=== PATIENT | male | born 1995 ===

== ENCOUNTER 2017-06-09 16:39 | Emergency (ER) | payer MEDICAID ==
--- NOTE | 2017-06-09 17:22 | EDM.PDOC ---
ED HPI GENERAL MEDICAL PROBLEM - General Chief Complaint: Headache Stated Complaint: SEVERE HEADACHES/NUMBNES MOUTH Time Seen by Provider: 06/09/17 16:59 - History of Present Illness INITIAL COMMENTS - FREE TEXT/NARRATIVE: HISTORY AND PHYSICAL: History of present illness: Patient is 22-year-old male presents with concern of left upper molar pain he states this radiates to his cheek and left face. Has been over last several days he denies fever chills nausea vomiting trauma or other concern Review of systems: As per history of present illness and below otherwise all systems reviewed and negative. Past medical history: As per history of present illness and as reviewed below otherwise noncontributory. Surgical history: As per history of present illness and as reviewed below otherwise noncontributory. Social history: No reported history of drug or alcohol abuse. Family history: As per history of present illness and as reviewed below otherwise noncontributory. Physical exam: HEENT: Atraumatic, normocephalic, pupils reactive, negative for conjunctival pallor or scleral icterus, mucous membranes moist, throat clear, neck supple, nontender, trachea midline. Multiple dental caries noted Lungs: Clear to auscultation, breath sounds equal bilaterally, chest nontender. Heart: S1S2, regular, negative for clicks, rubs, or JVD. Abdomen: Soft, nondistended, nontender. Negative for masses or hepatosplenomegaly. Negative for costovertebral tenderness. Pelvis: Stable nontender. Genitourinary: Deferred. Rectal: Deferred. Extremities: Atraumatic, negative for cords or calf pain. Neurovascular unremarkable. Neuro: Awake, alert, oriented. Cranial nerves II through XII unremarkable. Cerebellum unremarkable. Motor and sensory unremarkable throughout. Exam nonfocal. Diagnostics: None Therapeutics: None Impression: #1 left face pain probable dentalgia rule out dental abscess Definitive disposition and diagnosis as appropriate pending reevaluation and review of above. head Pain Score (Numeric/FACES): 8 - Related Data Allergies Allergy/AdvReac Type Severity Reaction Status Date / Time No Known Allergies Allergy Verified 06/09/17 17:09 Home Meds: Home Meds . [No Known Home Meds] 06/09/17 [History] Past Medical History - Past Health History Medical/Surgical History: Denies Medical/Surgical History Neurological History: Reports: Seizure Social & Family History - Family History Family Medical History: Noncontributory - Tobacco Use Smoking Status *Q: Current Every Day Smoker Years of Tobacco use: 7 Packs/Tins Daily: 1 - Recreational Drug Use Recreational Drug Use: Yes Drug Use in Last 12 Months: Yes Recreational Drug Type: Reports: Marijuana/Hashish ED ROS GENERAL - Review of Systems Review Of Systems: ROS reveals no pertinent complaints other than HPI. ED EXAM, GENERAL - Physical Exam Exam: See Below (See dictation) Course - Vital Signs Last Recorded V/S: Last Vital Signs Temp 36.3 C 06/09/17 16:39 Pulse 70 06/09/17 16:39 Resp 18 06/09/17 16:39 BP 152/77 H 06/09/17 16:39 Pulse Ox 97 06/09/17 16:39 Departure - Departure Time of Disposition: 17:21 Disposition: Home, Self-Care 01 Condition: Good Clinical Impression: Face pain, Dentalgia - Discharge Information Referrals: PCP,None [Primary Care Provider] - Additional Instructions: The following information is given to patients seen in the emergency department who are being discharged to home. This information is to outline your options for follow-up care. We provide all patients seen in our emergency department with a follow-up referral. The need for follow-up, as well as the timing and circumstances, are variable depending upon the specifics of your emergency department visit. If you don't have a primary care physician on staff, we will provide you with a referral. We always advise you to contact your personal physician following an emergency department visit to inform them of the circumstance of the visit and for follow-up with them and/or the need for any referrals to a consulting specialist. The emergency department will also refer you to a specialist when appropriate. This referral assures that you have the opportunity for followup care with a specialist. All of these measure are taken in an effort to provide you with optimal care, which includes your followup. Under all circumstances we always encourage you to contact your private physician who remains a resource for coordinating your care. When calling for followup care, please make the office aware that this follow-up is from your recent emergency room visit. If for any reason you are refused follow-up, please contact the [facility] emergency department at and asked to speak to the emergency department charge nurse. [facility] Primary Care [address] [place] [id number] [address]in[address] Hopper Anaprox as prescribed follow-up private medical doctor and/or clinic above follow-up dentist return as needed as discussed
== END 2017-06-09 17:49 | disposition home or self-care (01) ==
LOC: MW.ED 16:39
DX: K02.9 Dental caries, unspecified (principal); F17.210 Nicotine dependence, cigarettes, uncomplicated
CPT/HCPCS: 99282; 99283

== ENCOUNTER 2018-11-01 11:31 | Emergency (ER) | payer SELFPAY ==
[2018-11-01] MEDS ORDERED: Sodium Chloride 0.9% 1,000 ML IV ONE (11:42)
[2018-11-01] MEDS ORDERED: Ondansetron 4 MG/2 ML SDV IVPUSH ONE (11:42)
--- NOTE | 2018-11-01 11:42 | EDM.PDOC ---
ED HPI GENERAL MEDICAL PROBLEM - General Chief Complaint: Abdominal Pain Stated Complaint: STOMACH PAIN AND VOMITING Time Seen by Provider: 11/01/18 11:41 Source of Information: Reports: Patient History Limitations: Reports: No Limitations - History of Present Illness INITIAL COMMENTS - FREE TEXT/NARRATIVE: HISTORY AND PHYSICAL: History of present illness: Patient is a 23-year-old male presents to the ED today with concerns of right upper and left upper abdominal pain. Patient states that this morning when he woke up and that he instantly felt nauseous with a 10 out of 10 abdominal pain. He states the pain comes and goes in waves. He states he has had one episode of vomiting. He states he's also had one episode of watery diarrhea today. He states he has been able to pass gas. He states that all morning he has felt nauseous with the pain. Patient states the pain does radiate to the back He denies any history of any abdominal surgeries.He states he does use marijuana and tobacco but denies any alcohol use. She denies fever, chills, chest pain, shortness of breath, burning with urination, testicular pain, blood in urine or stool, or all other GI, , cardiovascular, or respiratory concerns. Patient denies any health history. Review of systems: As per history of present illness and below otherwise all systems reviewed and negative. Past medical history: As per history of present illness and as reviewed below otherwise noncontributory. Surgical history: As per history of present illness and as reviewed below otherwise noncontributory. Social history: See social history for further information Family history: As per history of present illness and as reviewed below otherwise noncontributory. Physical exam: General: Patient is alert, oriented, and in no acute distress. He is lying comfortably on exam table. HEENT: Atraumatic, normocephalic, pupils equal and reactive bilaterally, negative for conjunctival pallor or scleral icterus, mucous membranes moist, TMs normal bilaterally, throat clear, neck supple, nontender, trachea midline. No drooling or trismus noted. No meningeal signs. No hot potato voice noted. Lungs: Clear to auscultation, breath sounds equal bilaterally, chest nontender. Heart: S1S2, regular rate and rhythm without overt murmur Abdomen: Positive Rehman sign. Generalized mild-moderate tenderness to the right and left upper quadrant. Soft, nondistended. Negative for masses or hepatosplenomegaly. Negative for costovertebral tenderness. Pelvis: Stable nontender. Genitourinary: Deferred. Rectal: Deferred. Skin: Intact, warm, dry. No lesions or rashes noted. Extremities: Atraumatic, negative for cords or calf pain. Neurovascular unremarkable. Neuro: Awake, alert, oriented. Cranial nerves II through XII unremarkable. Cerebellum unremarkable. Motor and sensory unremarkable throughout. Exam nonfocal. Notes: Within the abdomen or pelvis. Trace nonspecific Melissa mesenteric appearance. Patient's lab work is unremarkable with the exception that he does have an H. pylori infection. He has been unable to give us a stool sample at this time. He is requesting to be discharged to home. We will send home supplies to obtain a stool sample along with the outpatient lab paperwork to have this completed. Medications were reviewed and discussed. The appropriate follow-up with the primary care or general surgeon was reviewed and discussed. Supportive care measures were reviewed and discussed. Voices understanding and is agreeable to plan of care. Denies any further questions or concerns at this time. Diagnostics: CBC, CMP, UA, stool studies, abdominal pelvic CT, lipase, H. pylori Therapeutics: IV fluid, Zofran Prescription: Lansoprazole, clarithromycin, amoxicillin Impression: H. pylori infection Plan: 1. Please take the eradication therapy as prescribed. 2. Cuming diet over the next 24-48 hours and then advance as tolerated. 3. Follow-up with primary care or general surgeon as we discussed. 4. Return to the ED as needed and as discussed. Definitive disposition and diagnosis as appropriate pending reevaluation and review of above. Lower abdomen Pain Score (Numeric/FACES): 4 - Related Data Allergies Allergy/AdvReac Type Severity Reaction Status Date / Time No Known Allergies Allergy Verified 11/01/18 11:43 Home Meds: Home Meds . [No Known Home Meds] 06/09/17 [History] Past Medical History - Past Health History Medical/Surgical History: Denies Medical/Surgical History Neurological History: Reports: Seizure Social & Family History - Family History Family Medical History: Noncontributory ED ROS GENERAL - Review of Systems Review Of Systems: ROS reveals no pertinent complaints other than HPI. ED EXAM, GI/ABD - Physical Exam Exam: See Below (See dictation) Course - Vital Signs Last Recorded V/S: Last Vital Signs Temp 98.4 F 11/01/18 11:43 Pulse 68 11/01/18 13:08 Resp 18 11/01/18 13:08 BP 165/85 H 11/01/18 13:08 Pulse Ox 96 11/01/18 13:08 - Orders/Labs/Meds Orders: Active Orders 24 hr Category Date Time Status CDIFF TOX A+B [OP] Stat Lab 11/01/18 12:06 Ordered CULTURE STOOL + CAMPY+SHIGATOX [RM] Stat Lab 11/01/18 12:06 Ordered OVA & PARASITES BY IMMUNOASSAY [MREF] Stat Lab 11/01/18 12:06 Ordered Labs: Laboratory Tests 11/01/18 11/01/18 11/01/18 Range/Units 11:53 11:53 11:53 WBC 10.12 (4.0-11.0) K/uL RBC 5.53 (4.50-5.90) M/uL Hgb 15.9 (13.0-17.0) g/dL Hct 45.8 (38.0-50.0) % MCV 82.8 (80.0-98.0) fL MCH 28.8 (27.0-32.0) pg MCHC 34.7 (31.0-37.0) g/dL RDW Std Deviation 42.0 (28.0-62.0) fl RDW Coeff of Jhonatan 14 (11.0-15.0) % Plt Count 152 (150-400) K/uL MPV 13.60 H (7.40-12.00) fL Neut % (Auto) 81.7 H (48.0-80.0) % Lymph % (Auto) 5.2 L (16.0-40.0) % [place] % (Auto) 9.9 (0.0-15.0) % Eos % (Auto) 3.0 (0.0-7.0) % Baso % (Auto) 0.2 (0.0-1.5) % Neut # (Auto) 8.3 H (1.4-5.7) K/uL Lymph # (Auto) 0.5 L (0.6-2.4) K/uL [place] # (Auto) 1.0 H (0.0-0.8) K/uL Eos # (Auto) 0.3 (0.0-0.7) K/uL Baso # (Auto) 0.0 (0.0-0.1) K/uL Nucleated RBC % 0.0 /100WBC Nucleated RBCs # 0 K/uL Sodium 140 (136-148) mmol/L Potassium 4.0 (3.5-5.1) mmol/L Chloride 105 (98-107) mmol/L Carbon Dioxide 21.5 (21.0-32.0) mmol/L BUN 14 (7.0-18.0) mg/dL Creatinine 1.1 (0.8-1.3) mg/dL Est Cr Clr Drug Dosing 111.24 mL/min Estimated GFR (MDRD) > 60.0 ml/min Glucose 109 H (74-106) mg/dL Calcium 8.8 (8.5-10.1) mg/dL Total Bilirubin 0.4 (0.2-1.0) mg/dL AST 31 (15-37) IU/L ALT 62 (14-63) IU/L Alkaline Phosphatase 92 (46-116) U/L Total Protein 7.9 (6.4-8.2) g/dL Albumin 3.9 (3.4-5.0) g/dL Globulin 4.0 (2.6-4.0) g/dL Albumin/Globulin Ratio 1.0 (0.9-1.6) Lipase 99 (73-393) U/L Urine Color Urine Appearance Urine pH (5.0-8.0) Ur Specific [place] (1.001-1.035) Urine Protein (NEGATIVE) mg/dL Urine Glucose (UA) (NEGATIVE) mg/dL Urine Ketones (NEGATIVE) mg/dL Urine Occult Blood (NEGATIVE) Urine Nitrite (NEGATIVE) Urine Bilirubin (NEGATIVE) Urine Urobilinogen (<2.0) EU/dL Ur Leukocyte Esterase (NEGATIVE) H. pylori IgG Antibody (NEG) 11/01/18 11/01/18 Range/Units 12:17 12:49 WBC (4.0-11.0) K/uL RBC (4.50-5.90) M/uL Hgb (13.0-17.0) g/dL Hct (38.0-50.0) % MCV (80.0-98.0) fL MCH (27.0-32.0) pg MCHC (31.0-37.0) g/dL RDW Std Deviation (28.0-62.0) fl RDW Coeff of Jhonatan (11.0-15.0) % Plt Count (150-400) K/uL MPV (7.40-12.00) fL Neut % (Auto) (48.0-80.0) % Lymph % (Auto) (16.0-40.0) % [place] % (Auto) (0.0-15.0) % Eos % (Auto) (0.0-7.0) % Baso % (Auto) (0.0-1.5) % Neut # (Auto) (1.4-5.7) K/uL Lymph # (Auto) (0.6-2.4) K/uL [place] # (Auto) (0.0-0.8) K/uL Eos # (Auto) (0.0-0.7) K/uL Baso # (Auto) (0.0-0.1) K/uL Nucleated RBC % /100WBC Nucleated RBCs # K/uL Sodium (136-148) mmol/L Potassium (3.5-5.1) mmol/L Chloride (98-107) mmol/L Carbon Dioxide (21.0-32.0) mmol/L BUN (7.0-18.0) mg/dL Creatinine (0.8-1.3) mg/dL Est Cr Clr Drug Dosing mL/min Estimated GFR (MDRD) ml/min Glucose (74-106) mg/dL Calcium (8.5-10.1) mg/dL Total Bilirubin (0.2-1.0) mg/dL AST (15-37) IU/L ALT (14-63) IU/L Alkaline Phosphatase (46-116) U/L Total Protein (6.4-8.2) g/dL Albumin (3.4-5.0) g/dL Globulin (2.6-4.0) g/dL Albumin/Globulin Ratio (0.9-1.6) Lipase (73-393) U/L Urine Color YELLOW Urine Appearance CLEAR Urine pH 6.0 (5.0-8.0) Ur Specific [place] 1.010 (1.001-1.035) Urine Protein NEGATIVE (NEGATIVE) mg/dL Urine Glucose (UA) NEGATIVE (NEGATIVE) mg/dL Urine Ketones NEGATIVE (NEGATIVE) mg/dL Urine Occult Blood NEGATIVE (NEGATIVE) Urine Nitrite NEGATIVE (NEGATIVE) Urine Bilirubin NEGATIVE (NEGATIVE) Urine Urobilinogen 0.2 (<2.0) EU/dL Ur Leukocyte Esterase NEGATIVE (NEGATIVE) H. pylori IgG Antibody POSITIVE H (NEG) Meds: Medications Discontinued Medications Generic Name Dose Route Start Last Admin Trade Name Freq PRN Reason Stop Dose Admin Al Hydroxide/Mg Hydroxide 15 0 ml 11/01/18 13:17 11/01/18 13:23 ml/ Metoclopramide HCl 5 mg/ PO 11/01/18 13:18 5 each Lidocaine HCl 5 ml ONETIME ONE Administration Sodium Chloride 1,000 mls @ 999 mls/hr 11/01/18 11:42 11/01/18 11:55 Normal Saline IV 11/01/18 12:42 999 mls/hr STAT ONE Administration Iopamidol 100 ml 11/01/18 13:12 11/01/18 13:12 Isovue Multipack-370 (76%) IVPUSH 11/01/18 13:13 100 ml ONETIME STA Administration Ondansetron HCl 4 mg 11/01/18 11:42 11/01/18 11:57 Zofran IVPUSH 11/01/18 11:43 4 mg ONETIME ONE Administration Pantoprazole Sodium 40 mg 11/01/18 13:17 11/01/18 13:23 Protonix Iv IVPUSH 11/01/18 13:18 40 mg NOW ONE Administration Departure - Departure Time of Disposition: 13:27 Disposition: Home, Self-Care 01 Clinical Impression: Helicobacter pylori (H. pylori) infection - Discharge Information Instructions: Helicobacter Pylori Infection Referrals: PCP,None [Primary Care Provider] - Forms: ED Department Discharge Additional Instructions: The following information is given to patients seen in the emergency department who are being discharged to home. This information is to outline your options for follow-up care. We provide all patients seen in our emergency department with a follow-up referral. The need for follow-up, as well as the timing and circumstances, are variable depending upon the specifics of your emergency department visit. If you don't have a primary care physician on staff, we will provide you with a referral. We always advise you to contact your personal physician following an emergency department visit to inform them of the circumstance of the visit and for follow-up with them and/or the need for any referrals to a consulting specialist. The emergency department will also refer you to a specialist when appropriate. This referral assures that you have the opportunity for follow-up care with a specialist. All of these measure are taken in an effort to provide you with optimal care, which includes your follow-up. Under all circumstances we always encourage you to contact your private physician who remains a resource for coordinating your care. When calling for follow-up care, please make the office aware that this follow-up is from your recent emergency room visit. If for any reason you are refused follow-up, please contact the Emergency Department at and asked to speak to the emergency department charge nurse. Primary Care [address] [place] [address] [place] [address] Specialty Care - General Surgery Professional Building [address] [place] [address], [address] [place] [address] 1. Please take the eradication therapy as prescribed. 2. Cuming diet over the next 24-48 hours and then advance as tolerated. 3. Follow-up with primary care or general surgeon as we discussed. 4. Return to the ED as needed and as discussed. - My Orders Last 24 Hours: My Active Orders 11/01/18 12:06 CDIFF TOX A+B [OP] Stat CULTURE STOOL + CAMPY+SHIGATOX [RM] Stat OVA & PARASITES BY IMMUNOASSAY [MREF] Stat - Assessment/Plan Last 24 Hours: My Active Orders 11/01/18 12:06 CDIFF TOX A+B [OP] Stat CULTURE STOOL + CAMPY+SHIGATOX [RM] Stat OVA & PARASITES BY IMMUNOASSAY [MREF] Stat
[2018-11-01 12:28] LABS: CHLORIDE,CL 105 mmol/L (98-107); SODIUM,NA 140 mmol/L (136-148)
[2018-11-01] MEDS ORDERED: Iopamidol 755 MG/ML 500 ML Multipack Bottle IVPUSH STA (13:12)
[2018-11-01] MEDS ORDERED: Pantoprazole 40 MG Vial IVPUSH ONE (13:17)
[2018-11-01] MEDS ORDERED: Alum Hydrox/Mag Hydrox/Simeth 15 ML, Metoclopramide 5 MG, Lidocaine 2% 5 ML PO ONE ×3 (13:17)
--- NOTE | 2018-11-01 13:25 | CT ---
CT of the abdomen and pelvis with contrast. HISTORY: Pain TECHNIQUE: Axial CT images were obtained of the abdomen and pelvis following administration of 100 mL of Isovue-370 in the left hand without complication. Coronal and sagittal reconstructions obtained. Additional delayed images obtained due to motion on the portal venous phase. FINDINGS: The lung bases are clear, no pleural effusion. Focal fatty infiltration is noted near the falciform ligament, otherwise the liver is unremarkable. The gallbladder, spleen, and adrenal glands are normal. The pancreas is normal. No bulky retroperitoneal lymphadenopathy or abdominal ascites. Kidneys enhance and function symmetrically without evidence of obstructive uropathy. Tiny renal cortical cyst. The large and small bowel are normal in caliber without evidence of obstruction. The appendix is normal. A few minimally prominent lymph nodes are noted within the mesentery with a trace casey mesentery appearance. The urinary bladder is normal. No bulky pelvic lymphadenopathy or free pelvic fluid. No suspicious osseous abnormalities identified. Mild degenerative changes within the left hip. IMPRESSION: 1. No definite acute findings noted within the abdomen or pelvis. 2. Trace nonspecific casey mesentery appearance.
== END 2018-11-01 13:54 | disposition home or self-care (01) ==
LOC: MW.ED 11:31
DX: R10.11 Right upper quadrant pain (principal); R10.12 Left upper quadrant pain; B96.81 Helicobacter pylori [H. pylori] as the cause of diseases classified elsewhere
CPT/HCPCS: 36415; 74177; 80053; 81003; 83690; 85025; 86677; 96361; 96374; 96375; 99284; A9270; C9113; J2405; J7040; Q9967